=== PATIENT | female | born 1985 | race Caucasian/White ===

== ENCOUNTER → 2019-12-21 10:21 | Outpatient (BNVA) | payer MEDICAID, SELFPAY | PROVIDERS: Family Provider Family Medicine; PCP Family Medicine; Referring Provider Obstetrics & Gynecology; Visit Provider Obstetrics & Gynecology | DX: N93.9 Abnormal uterine and vaginal bleeding, unspecified (principal) | CPT/HCPCS: 76830; 83001; 84443; 84703; 85025 ==

== ENCOUNTER → 2019-12-23 11:13 | Outpatient (BNVA) | payer MEDICAID, SELFPAY | PROVIDERS: Family Provider Family Medicine; PCP Family Medicine; Visit Provider Nurse Practitioner Family | DX: J02.9 Acute pharyngitis, unspecified (principal) | CPT/HCPCS: 87081; 87880 ==

== ENCOUNTER 2019-12-28 08:30 | Emergency (ER) | payer MEDICAID, SELFPAY ==
[2019-12-28 08:33] VITALS: BP 118/85; PULSE 92; RESP 17; TEMP 36.9; O2SAT 97; BMI 37.4
--- NOTE | 2019-12-28 08:50 | ED_ITS ---
Entered by Kay Dimas, acting as scribe for Eric Shah DO Dec 28, 2019 08:30 HPI - Female Genitourinary General: Chief complaint: Urogenital-Female Stated complaint: blood in urine Time Seen by Provider: 12/28/19 08:45 History of Present Illness: HPI Narrative: 34-year-old female presents emergency room complaint of dysuria urgency or frequency along with some moderate hematuria. Patient denies flank pain. Denies vaginal discharge. Patient seen previously for the same problem started on antibiotics has not had any relief of symptoms since then. MD elicited complaint: UTI Onset (ago): day(s) Severity: moderate Female Urogenital Radiation: Non-Radiating and Suprapubic Quality of pain: cramping Consistency: intermittent Vaginal discharge: none Vaginal bleeding: none Urinary symptoms: Difficulty Urinating, Dysuria and Hematuria Exacerbating factors: none Relieving factors: none Associated symptoms: Reports no associated symptoms; Deny abdominal pain, nausea or vaginal discharge Treatment prior to arrival: other (Patient was seen previously and started on antibiotics is currently taking.) Review of Systems Const: Denies: fever, chills, body aches, change in appetite, fatigue or malaise ENMT: Denies: throat pain, ear pain, nasal discharge or nasal congestion Card: Denies: chest pain, edema, shortness of breath on exertion or shortness of breath when lying down Resp: Denies: shortness of breath, productive cough or non-productive cough GI: Denies: abdominal pain, nausea, vomiting, vomiting blood, coffee grounds in vomit, diarrhea, constipation, bloating, blood in stool or black tarry stool : Reports: urinary urgency and blood in urine; Denies: flank pain, difficulty urinating, painful urination, urinary frequency or vaginal discharge Skin/Breast: Denies: rash or itching PFSH ED PFSH: Medical History Dyspareunia, female Surgical History History of endometrial ablation (~09/2015) 09/2015 Thermal endometrial ablation performed by . Hx of tubal ligation (~2010) Essure procedure performed by Dr. Francis. Family History Father Diabetes Grandmother Hypertension PATERNAL Heart disease PATERNAL Grandfather Hypertension PATERNAL Family/Other Breast cancer MATERNAL AUNT Social History Smoking and tobacco status: current some day smoker cigarettes Years cigarettes smoked: 16 [ Other cigarette details: smokes lesss than 1 ppd ] Alcohol intake: current Alcohol intake frequency: holidays/special occasions only Alcohol type: beer Physical Exam Const: COMMON NORMALS: no apparent distress GENERAL APPEARANCE: cooperative and comfortable ORIENTATION/CONSCIOUSNESS: Yes awake, Yes oriented to person, Yes oriented to place and Yes oriented to time HENMT: COMMON NORMALS: normocephalic, head/scalp atraumatic, hearing grossly normal bilaterally, external ears normal, EAC's normal, TM's normal bilaterally, nasal mucous membranes and turbinates normal, moist oral mucous membranes and oropharynx normal HEAD & SCALP: normocephalic and atraumatic NOSE: nasal mucous membranes and turbinates normal EXTERNAL EAR: Yes external ears normal EXTERNAL AUDITORY CANAL: EAC's normal TYMPANIC MEMBRANE: TM's normal bilaterally Eye: COMMON NORMALS: PERRL, EOMs intact bilaterally, conjunctivae normal and no scleral icterus CONJUNCTIVA: Yes conjunctivae normal PUPIL: Yes PERRL Neck/C-Spine: COMMON NORMALS: full ROM, no lymphadenopathy, supple and no JVD Lymph: LYMPHATIC: no lymphadenopathy noted and no lymphedema noted Resp: COMMON NORMALS: normal respiratory effort, no retractions, no use of accessory muscles and clear to auscultation bilaterally AUSCULTATION: clear to auscultation bilaterally Cardio: COMMON NORMALS: no JVD, regular rate, regular rhythm and no murmurs RATE: regular rate RHYTHM: regular rhythm GI: COMMON NORMALS: soft to palpation and no hepatosplenomegaly AUSCULTATION: Yes normoactive bowel sounds PALPATION: Yes soft, No tender, No guarding and Yes no hepatosplenomegaly Extremity: COMMON NORMALS: normal to inspection, normal capillary refill, no clubbing, cyanosis or edema, no calf tenderness and no pedal edema Neuro: SENSORIUM/ORIENTATION: Yes oriented to person, Yes oriented to place and Yes oriented to time Skin: COMMON NORMALS: no rashes or lesions noted GENERAL SKIN EXAM: no rashes or lesions noted Course ED course: Will change to Cipro however stop the amoxicillin she was started on previously Cipro for 5 days follow-up with primary care doctor if not improving if worsens return to the emergency room Vital Signs: Vital signs: Vital Signs Temperature 98.4 F 12/28/19 08:33 Pulse Rate 92 12/28/19 08:33 Respiratory Rate 17 12/28/19 08:33 Blood Pressure 118/85 12/28/19 08:33 Pulse Oximetry 97 12/28/19 08:33 MDM - Female Lab Data: Labs: Lab Results 12/28/19 Range/Units 08:45 Urine Color Yellow (Yellow) Urine Appearance Cloudy (CLEAR) Urine pH 5 (5-7) Ur Specific Gravit y 1.015 (1.005-1.030) Urine Protein 1+ H (Negative) Urine Glucose (UA) Norm (Normal) Urine Ketones Negative (Negative) Urine Blood 3+ H (Negative) Urine Nitrate Negative (Negative) Urine Bilirubin Neg (NEGATIVE) Urine Urobilinogen Norm (Negative) mg/dL Ur Leukocyte Sharron ase 2+ H (Negative) Urine RBC Too numerous to c nt H (0-2) /hpf Urine WBC Too numerous to c nt H (0-5) /hpf Ur Squamous Epith Cells 0-4 H (0-5) Ur Transition Epit h Cell 0-4 /hpf Urine Bacteria 1+ H (NONE) Urine Mucus Trace Discharge Plan Discharge Patient Disposition: Home, Self-Care Clinical Impression: Urinary tract infection Condition: Stable Prescriptions: New ciprofloxacin HCl 500 mg tablet 500 mg PO BID 5 Days Qty: 10 RF: 0 No Action amoxicillin 875 mg tablet 875 mg PO BID 10 Days Qty: 20 RF: 0 sumatriptan succinate 50 mg tablet 100 mg PO PRN PRN (Reason: Migraine Headache) RF: 0 Linzess 290 mcg capsule 290 mcg PO QAM PRN (Reason: unknown) RF: 0 EC-Naprosyn 500 mg tablet,delayed release (DR/EC) 500 mg PO BID PRN (Reason: pain) Qty: 20 RF: 0 Discharge Orders: Discharge Order (Routine); Ordered 12/28/19 Ordered By: Eric Shah Referrals: Jim Matthews MD [Primary Care Provider] - Discharge Diet: Usual diet Discharge Activity: Resume usual activity Activity Restrictions/Additional Instructions: Return if you have further problems or develop fever. 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
[2019-12-28 09:25] LABS: Add Urine Microscopic? YES; Bilirubin Urine Neg (NEGATIVE); Blood Urine 3+ (Negative); Glucose Urine UA Norm (Normal); Ketones Urine Negative (Negative); Leukocyte Esterase Urine 2+ (Negative); Nitrate Urine Negative (Negative); Protein Urine 1+ (Negative); Specific Gravity, Urine 1.015 (1.005-1.030); Urine Appearance Cloudy (CLEAR); Urine Color Yellow (Yellow); Urobilinogen Urine Norm (Negative); pH Urine 5 (5-7)
[2019-12-28 09:27] LABS: Bacteria Urine 1+; RBC Urine TOO NUMEROUS TO CNT /hpf (0-2); Squamous Epithelial Cell Urine 0-4 (0-5); Transitional Epi Cells Urine 0-4 /hpf; WBC Urine TOO NUMEROUS TO CNT /hpf (0-5)
[2019-12-28 09:29] LABS: Add Urine Culture? Yes; Mucus Urine TRACE
== END 2019-12-28 09:56 | disposition home or self-care (01) ==
PROVIDERS: Emergency Provider Family Medicine; Family Provider Family Medicine; PCP Family Medicine
DX: N39.0 Urinary tract infection, site not specified (principal); F17.210 Nicotine dependence, cigarettes, uncomplicated
CPT/HCPCS: 81001; 87086; 99282

== ENCOUNTER 2019-12-31 15:35 | Emergency (ER) | payer MEDICAID, SELFPAY ==
[2019-12-31 16:14] VITALS: BP 114/77; PULSE 106; RESP 16; TEMP 37.5; O2SAT 97; BMI 37.4
[2019-12-31 17:01] LABS: Influenza A by IFA Negative (Negative); Influenza B by IFA Negative (Negative)
--- NOTE | 2019-12-31 21:04 | ED_ITS ---
Entered by Patricia Jack, acting as scribe for Lauren Tenorio MD Dec 31, 2019 15:35 HPI - General Adult General: Chief complaint: General Medical Stated complaint: COUGH/LOWER BACK PAIN Time Seen by Provider: 12/31/19 20:57 Source: patient Mode of arrival: ambulatory History of Present Illness: HPI narrative: 34 y/o female presents to the ED with complaint of sciatic pain. Pt states she was seen here a week ago for UTI and placed on abx. Since then she has continued to not feel well. She states she developed a cough and intermittent dizziness last night. Her daughter was recently dx with with flu AoJe WALKER complaint: Cough, dizzy Onset (ago): day(s) Severity: mild Quality: aching Associated symptoms: Reports cough; Deny chest pain, dyspnea or rash Review of Systems Const: Denies: fever, chills, body aches or change in appetite Eyes: Denies: blurry vision or eye discomfort ENMT: Denies: throat pain or dental pain Card: Denies: chest pain Resp: Reports: non-productive cough; Denies: shortness of breath GI: Denies: abdominal pain or diarrhea : Denies: painful urination Musc: Reports: back pain and extremity pain; Denies: neck pain Skin/Breast: Denies: rash Neuro: Reports: dizziness Psych: Denies: depression Ortiz/Lymph: Denies: easy bruising All/Imm: Denies: hives PFSH ED PFSH: Social History (Updated 12/28/19 @ 11:07 by Patricia Wasserman RN) Smoking and tobacco status: current some day smoker cigarettes Years cigarettes smoked: 16 [ Other cigarette details: smokes lesss than 1 ppd ] Alcohol intake: current Alcohol intake frequency: holidays/special occasions only Alcohol type: beer Physical Exam Const: COMMON NORMALS: no apparent distress, oriented x3 and healthy appearing HENMT: COMMON NORMALS: normocephalic and head/scalp atraumatic HEAD & SCALP: normocephalic and atraumatic Eye: COMMON NORMALS: PERRL and EOMs intact bilaterally PUPIL: Yes PERRL Neck/C-Spine: COMMON NORMALS: full ROM and supple Chest: COMMONS NORMALS: inspection of chest normal and palpation of chest normal Resp: COMMON NORMALS: normal respiratory effort, no retractions, no use of accessory muscles and clear to auscultation bilaterally AUSCULTATION: clear to auscultation bilaterally Cardio: COMMON NORMALS: regular rate, regular rhythm and no murmurs RATE: regular rate RHYTHM: regular rhythm GI: COMMON NORMALS: normal to inspection, nondistended, normoactive bowel sounds, soft to palpation, non-tender and no masses PALPATION: Yes soft Extremity: COMMON NORMALS: normal to inspection and full ROM Neuro: COMMON NORMALS: oriented x3, moves all extremities and no focal motor deficits Psych: COMMON NORMALS: mental status grossly normal, thought process normal and cooperative THOUGHT PROCESS: normal thought process Skin: COMMON NORMALS: no rashes or lesions noted and no wounds GENERAL SKIN EXAM: no rashes or lesions noted Course Vital Signs: Vital signs: Vital Signs Temperature 99.5 F 12/31/19 16:14 Pulse Rate 106 H 12/31/19 16:14 Respiratory Rate 16 12/31/19 16:14 Blood Pressure 114/77 12/31/19 16:14 Pulse Oximetry 97 12/31/19 16:14 MDM - General Adult MDM Narrative: Medical decision making narrative: Patient presents here with upper respiratory infection. Influenza is negative. Patient has low back pain as well with no signs of kidney stone or urinary tract infection. Abdominal exam is benign. Patient is stable for discharge and is to return if worsening. Lab Data: Labs: Lab Results 12/31/19 12/31/19 12/31/19 Range/Units 16:19 21:40 21:45 HCG, Qual Negative (Negative) Urine Color Yellow (Yellow) Urine Appearance Sl hazy (CLEAR) Urine pH 5 (5-7) Ur Specific Gravit y 1.020 (1.005-1.030) Urine Protein Neg (Negative) Urine Glucose (UA) Norm (Normal) Urine Ketones Negative (Negative) Urine Blood Neg (Negative) Urine Nitrate Negative (Negative) Urine Bilirubin Neg (NEGATIVE) Urine Urobilinogen Norm (Negative) mg/dL Ur Leukocyte Sharron ase Negative (Negative) Urine RBC None (0-2) /hpf Urine WBC 5-10 H (0-5) /hpf Ur Squamous Epith Cells 0-4 H (0-5) Urine Bacteria Trace (NONE) Urine Mucus 1+ Influenza Type A A g Negative (Negative) POC Influenza B Ag Negative (Negative) Imaging Data^: CXR: Radiologist's impression: Ordering Provider/Ordering MD: Mayank Hickey MD Date of Service: 12/31/19 Procedure(s): XR chest 1V portable [id number] Accession Number(s): [id number] Report Number: [id number] WS: [id number] Portable AP upright chest, 12/31/2019 Clinical Data: Sent for change in mental status Comparison: Portable chest, 04/02/2017. Findings: No nodules, masses or effusions are seen. The heart is normal. The pulmonary vascularity is not increased. No pneumonia or pneumothorax is seen. The aortic arch and descending aorta show mild tortuosity. The diaphragms are flattened. XR/XR chest 1V portable [id number] Impression: Atherosclerosis and hyperinflation. Discharge Plan Discharge Patient Disposition: Home, Self-Care Clinical Impression: Acute upper respiratory infection, Low back pain Condition: Stable Prescriptions: New EC-Naprosyn 500 mg tablet,delayed release (DR/EC) 500 mg PO BID PRN (Reason: pain) Qty: 20 RF: 0 No Action amoxicillin 875 mg tablet 875 mg PO BID 10 Days Qty: 20 RF: 0 sumatriptan succinate 50 mg tablet 100 mg PO PRN PRN (Reason: Migraine Headache) RF: 0 Linzess 290 mcg capsule 290 mcg PO QAM PRN (Reason: unknown) RF: 0 ciprofloxacin HCl 500 mg tablet 500 mg PO BID 5 Days Qty: 10 RF: 0 Discharge Orders: Discharge Order (Routine); Ordered 12/31/19 Ordered By: Lauren Tenorio Referrals: Jim Matthews MD [Primary Care Provider] - 4-7 days Discharge Diet: Advance as tolerated Discharge Activity: Resume usual activity Patient Instructions: Upper Respiratory Infection (ED) Discharge Date/Time: 12/31/19 22:59 Coding Level of Care Code ED Retail Warehouse Supervisor for Chg Fwd Exam Comprehensive The documentation recorded by the Guero iniguez Ashley, accurately reflects the service I personally performed and the decisions made by Coby bean Korby, MD Dec 31, 2019 15:35
--- NOTE | 2019-12-31 21:05 | XR_ITS ---
WS: [id number] XR chest 2V* [id number] REASON FOR EXAM: cough FINDINGS: Comparisons were made to July 09, 2019. The heart and mediastinal interfaces normal. The lung george are well aerated. No pneumonia, pleural effusion, pulmonary edema, or mass effect. The hilum and apices normal. No osseous abnormalities. XR/XR chest 2V* [id number] IMPRESSION: Negative chest for active pathology.
[2019-12-31 21:50] LABS: HCG Qualitative Urine. Negative (Negative)
[2019-12-31 22:10] LABS: Urine Appearance SL Hazy (CLEAR); Urine Color Yellow (Yellow); pH Urine 5 (5-7)
[2019-12-31 22:11] LABS: Add Urine Culture? No; Bacteria Urine TRACE; Bilirubin Urine Neg (NEGATIVE); Blood Urine Neg (Negative); Glucose Urine UA Norm (Normal); Ketones Urine Negative (Negative); Leukocyte Esterase Urine Negative (Negative); Mucus Urine 1+; Nitrate Urine Negative (Negative); Protein Urine Neg (Negative); Squamous Epithelial Cell Urine 0-4 (0-5); Urobilinogen Urine Norm (Negative)
== END 2019-12-31 22:59 | disposition home or self-care (01) ==
PROVIDERS: Family Medicine; Emergency Provider Emergency Medicine; Family Provider Family Medicine; PCP Family Medicine
DX: J06.9 Acute upper respiratory infection, unspecified (principal); M54.5 Low back pain; F17.210 Nicotine dependence, cigarettes, uncomplicated
CPT/HCPCS: 71046; 81001; 81025; 87804; 99281; 99283

== ENCOUNTER 2020-01-04 07:51 | Emergency (ER) | payer MEDICAID, SELFPAY ==
[2020-01-04 07:56] VITALS: BP 117/67; PULSE 87; RESP 16; TEMP 36.2; O2SAT 98; BMI 36.6
--- NOTE | 2020-01-04 08:00 | ED_ITS ---
HPI - General Adult General: Chief complaint: General Medical Stated complaint: COUGHING, CONGESTION Time Seen by Provider: 01/04/20 07:55 Source: patient Mode of arrival: ambulatory History of Present Illness: HPI narrative: Coughing and congestion; headache and states lungs and throat feel like they are burning. Sensitivity to light. Associated symptoms: Reports headache(s) Review of Systems General: Reports: 10 or more systems reviewed and unremarkable except in HPI and below Eyes: Reports: photophobia ENMT: Reports: throat pain Resp: Reports: non-productive cough Neuro: Reports: headache PFSH ED PFSH: Medical History Dyspareunia, female Surgical History History of endometrial ablation (~09/2015) 09/2015 Thermal endometrial ablation performed by . Hx of tubal ligation (~2010) Essure procedure performed by Dr. Francis. Family History Father Diabetes Grandmother Hypertension PATERNAL Heart disease PATERNAL Grandfather Hypertension PATERNAL Family/Other Breast cancer MATERNAL AUNT Social History Smoking and tobacco status: current some day smoker cigarettes Years cigarettes smoked: 16 [ Other cigarette details: smokes lesss than 1 ppd ] Alcohol intake: current Alcohol intake frequency: holidays/special occasions only Alcohol type: beer Physical Exam Const: COMMON NORMALS: no apparent distress, oriented x3, no limitations and alert GENERAL APPEARANCE: cooperative and comfortable ORIENTATION/CONSCIOUSNESS: Yes awake, Yes oriented to person, Yes oriented to place and Yes oriented to time HENMT: COMMON NORMALS: normocephalic, head/scalp atraumatic, external ears normal, EAC's normal, TM's normal bilaterally and external nose normal HEAD & SCALP: normal to inspection, normocephalic and atraumatic FACE & SINUS: normal facial exam, sinuses nontender and face symmetric NOSE: external nose normal, nares normal and no nasal discharge EXTERNAL EAR: Yes external ears normal EXTERNAL AUDITORY CANAL: EAC's normal TYMPANIC MEMBRANE: TM's normal bilaterally MOUTH: oral and palatal mucosa normal, lip normal and tongue normal THROAT: posterior oropharynx normal, tonsils normal and uvula midline Eye: COMMON NORMALS: PERRL, EOMs intact bilaterally and conjunctivae normal GENERAL EYE: normal appearance of both eyes and normal light reflex EYELID: eyelids normal CONJUNCTIVA: Yes conjunctivae normal PUPIL: Yes PERRL EOM: Yes EOM abnormal DIRECT OPHTHALMOSCOPY: Yes normal light reflex Neck/C-Spine: COMMON NORMALS: full ROM, no lymphadenopathy, supple, no meningeal signs, no JVD and thyroid normal GENERAL: Yes normal visual inspection THYROID: thyroid normal CERVICAL SPINE: Yes cervical ROM normal and Yes normal cervical lordosis Lymph: LYMPHATIC: no lymphadenopathy noted Chest: COMMONS NORMALS: inspection of chest normal and palpation of chest normal Resp: COMMON NORMALS: normal respiratory effort and no retractions AUSCULTATION: wheezes lower bilaterally and diminished lung sounds Cardio: COMMON NORMALS: no JVD, regular rate, regular rhythm, S1 normal heart sound, S2 normal heart sound, no gallops, no clicks, no murmurs, no rub and peripheral pulses 2+ throughout RATE: regular rate RHYTHM: regular rhythm HEART SOUNDS: S1 normal and S2 normal PERIPHERAL PULSES: pulses 2+ throughout GI: COMMON NORMALS: normal to inspection, nondistended, normoactive bowel sounds, soft to palpation, non-tender and no masses PALPATION: Yes soft : COMMON NORMALS: Yes no CVA tenderness and Yes external appearance normal BLADDER/KIDNEY EXAM: Yes no CVA tenderness Back/Pelvis: COMMON NORMALS: no CVA tenderness, thoracic and lumbar spine normal to inspection, no thoracic nor lumbar tenderness and thoraco-lumbar ROM normal Extremity: COMMON NORMALS: normal to inspection, full ROM, normal capillary refill, no joint enlargement, no clubbing, cyanosis or edema, no calf tenderness and no pedal edema GENERAL: Yes normal exam except as noted Neuro: COMMON NORMALS: oriented x3, moves all extremities, no focal motor deficits, no sensory deficits noted and gait normal SENSORIUM/ORIENTATION: Yes alert, Yes oriented to person, Yes oriented to place and Yes oriented to time MENINGEAL SIGNS: Yes no meningeal signs Psych: COMMON NORMALS: mental status grossly normal, thought process normal, cooperative, affect normal, speech normal and activity/motor behavior normal SPEECH: Yes normal speech THOUGHT PROCESS: normal thought process Skin: COMMON NORMALS: no rashes or lesions noted, no wounds and skin turgor normal GENERAL SKIN EXAM: no rashes or lesions noted and turgor normal Course ED course: Pt symptomatic upon examination of nonproductive cough and photophobia. Lung sounds were diminished in lower lobes with mild wheezing. Pt smokes occasionally. Recent exposure to Flu A. No flu shot. Will treat with oral antibiotics of bacterial bronchitis. Vital Signs: Vital signs: Vital Signs Temperature 97.1 F L 01/04/20 07:56 Pulse Rate 87 01/04/20 07:56 Respiratory Rate 16 01/04/20 07:56 Blood Pressure 117/67 01/04/20 07:56 Pulse Oximetry 98 01/04/20 07:56 Discharge Plan Discharge Patient Disposition: Home, Self-Care Clinical Impression: Bronchitis Condition: Stable Prescriptions: New albuterol sulfate 90 mcg/actuation HFA aerosol inhaler 1 inh INHALATION Q6H PRN (Reason: shortness of breath or wheezing) Qty: 6.7 RF: 0 Zithromax Z-Ari 250 mg tablet See Rx Instructions .ROUTE .COMPLEX Qty: 6 RF: 0 No Action sumatriptan succinate 50 mg tablet 100 mg PO PRN PRN (Reason: Migraine Headache) RF: 0 Linzess 290 mcg capsule 290 mcg PO QAM PRN (Reason: unknown) RF: 0 EC-Naprosyn 500 mg tablet,delayed release (DR/EC) 500 mg PO BID PRN (Reason: pain) Qty: 20 RF: 0 Referrals: Jim Matthews MD [Primary Care Provider] - Discharge Diet: Usual diet Discharge Activity: Increase activity as tolerated Activity Restrictions/Additional Instructions: Stop smoking. Follow up with PCP as needed if not improving within 48 hours or if worsening in symptoms. Coding Level of Care Code ED Automatic Lathe Operator for Chg Fwd Exam Comprehensive
== END 2020-01-04 08:35 | disposition home or self-care (01) ==
PROVIDERS: Emergency Provider Nurse Practitioner Family; Family Provider Family Medicine; PCP Family Medicine
DX: J40 Bronchitis, not specified as acute or chronic (principal); F17.210 Nicotine dependence, cigarettes, uncomplicated
CPT/HCPCS: 12345; 99281

== ENCOUNTER → 2020-02-20 08:04 | Outpatient (BNVA) | payer MEDICAID, SELFPAY | PROVIDERS: Family Provider Family Medicine; PCP Family Medicine; Visit Provider Counselor Mental Health | DX: F33.1 Major depressive disorder, recurrent, moderate (principal) | CPT/HCPCS: 90834 ==

== ENCOUNTER → 2020-02-25 08:03 | Outpatient (BNVA) | payer MEDICAID, SELFPAY | PROVIDERS: Family Provider Family Medicine; PCP Family Medicine; Visit Provider Counselor Mental Health | DX: F33.1 Major depressive disorder, recurrent, moderate (principal) | CPT/HCPCS: 90832 ==

== ENCOUNTER → 2020-03-04 08:34 | Outpatient (BNVA) | payer MEDICAID, SELFPAY | PROVIDERS: Family Provider Family Medicine; PCP Family Medicine; Visit Provider Counselor Mental Health | DX: F33.1 Major depressive disorder, recurrent, moderate (principal) | CPT/HCPCS: 90832 ==

== ENCOUNTER → 2020-03-10 08:05 | Outpatient (BNVA) | payer MEDICAID, SELFPAY | PROVIDERS: Family Provider Family Medicine; PCP Family Medicine; Visit Provider Counselor Mental Health | DX: F33.1 Major depressive disorder, recurrent, moderate (principal) | CPT/HCPCS: 90832 ==

== ENCOUNTER → 2020-03-17 08:04 | Outpatient (BNVA) | payer MEDICAID, SELFPAY | PROVIDERS: Family Provider Family Medicine; PCP Family Medicine; Visit Provider Counselor Mental Health | DX: F33.1 Major depressive disorder, recurrent, moderate (principal) | CPT/HCPCS: 90834 ==

== ENCOUNTER → 2020-03-25 08:30 | Outpatient (BNVA) | payer MEDICAID, SELFPAY | PROVIDERS: Family Provider Family Medicine; PCP Family Medicine; Visit Provider Counselor Mental Health | DX: F33.1 Major depressive disorder, recurrent, moderate (principal) | CPT/HCPCS: 90834 ==

== ENCOUNTER → 2020-04-01 08:05 | Outpatient (BNVA) | payer MEDICAID, SELFPAY | PROVIDERS: Family Provider Family Medicine; PCP Family Medicine; Visit Provider Counselor Mental Health | DX: F33.1 Major depressive disorder, recurrent, moderate (principal) | CPT/HCPCS: 90834 ==

== ENCOUNTER → 2020-04-08 08:17 | Outpatient (BNVA) | payer MEDICAID, SELFPAY | PROVIDERS: Family Provider Family Medicine; PCP Family Medicine; Visit Provider Counselor Mental Health | DX: F33.1 Major depressive disorder, recurrent, moderate (principal) | CPT/HCPCS: 90834 ==

== ENCOUNTER → 2020-04-15 07:58 | Outpatient (BNVA) | payer MEDICAID, SELFPAY | PROVIDERS: Family Provider Family Medicine; PCP Family Medicine; Visit Provider Counselor Mental Health | DX: F33.1 Major depressive disorder, recurrent, moderate (principal) | CPT/HCPCS: 90834 ==

== ENCOUNTER → 2020-04-22 08:04 | Outpatient (BNVA) | payer MEDICAID, SELFPAY | PROVIDERS: Family Provider Family Medicine; PCP Family Medicine; Visit Provider Counselor Mental Health | DX: F33.1 Major depressive disorder, recurrent, moderate (principal) | CPT/HCPCS: 90834 ==

== ENCOUNTER → 2020-04-29 08:24 | Outpatient (BNVA) | payer MEDICAID, SELFPAY | PROVIDERS: Family Provider Family Medicine; PCP Family Medicine; Visit Provider Counselor Mental Health | DX: F33.1 Major depressive disorder, recurrent, moderate (principal) | CPT/HCPCS: 90834 ==

== ENCOUNTER → 2020-05-16 08:26 | Outpatient (BNVA) | payer MEDICAID, SELFPAY | PROVIDERS: Family Provider Family Medicine; PCP Family Medicine; Visit Provider Counselor Mental Health | DX: F33.1 Major depressive disorder, recurrent, moderate (principal); F43.11 Post-traumatic stress disorder, acute | CPT/HCPCS: 90834 ==

== ENCOUNTER → 2020-05-21 08:00 | Outpatient (BNVA) | payer MEDICAID, SELFPAY | PROVIDERS: Family Provider Family Medicine; PCP Family Medicine; Visit Provider Counselor Mental Health | DX: F43.11 Post-traumatic stress disorder, acute (principal); F33.1 Major depressive disorder, recurrent, moderate | CPT/HCPCS: 90834 ==

== ENCOUNTER → 2020-05-27 08:05 | Outpatient (BNVA) | payer MEDICAID, SELFPAY | PROVIDERS: Family Provider Family Medicine; PCP Family Medicine; Visit Provider Counselor Mental Health | DX: F33.41 Major depressive disorder, recurrent, in partial remission (principal); F43.11 Post-traumatic stress disorder, acute | CPT/HCPCS: 90834 ==

== ENCOUNTER → 2020-06-03 08:41 | Outpatient (BNVA) | payer MEDICAID, SELFPAY | PROVIDERS: Family Provider Family Medicine; PCP Family Medicine; Visit Provider Counselor Mental Health | DX: F43.11 Post-traumatic stress disorder, acute (principal); F33.41 Major depressive disorder, recurrent, in partial remission | CPT/HCPCS: 90834 ==

== ENCOUNTER → 2020-06-18 14:26 | Outpatient (BNVA) | payer MEDICAID, SELFPAY | PROVIDERS: Family Provider Family Medicine; PCP Family Medicine; Visit Provider Psychiatry & Neurology Psychiatry | DX: F41.1 Generalized anxiety disorder (principal); Z63.9 Problem related to primary support group, unspecified; F81.9 Developmental disorder of scholastic skills, unspecified | CPT/HCPCS: 90792 ==

== ENCOUNTER → 2020-06-20 08:33 | Outpatient (BNVA) | payer MEDICAID, SELFPAY | PROVIDERS: Family Provider Family Medicine; PCP Family Medicine; Visit Provider Counselor Mental Health | DX: F41.1 Generalized anxiety disorder (principal); F33.42 Major depressive disorder, recurrent, in full remission; F43.11 Post-traumatic stress disorder, acute | CPT/HCPCS: 90834 ==

== ENCOUNTER → 2020-06-27 08:30 | Outpatient (BNVA) | payer MEDICAID, SELFPAY | PROVIDERS: Family Provider Family Medicine; PCP Family Medicine; Visit Provider Counselor Mental Health | DX: F41.1 Generalized anxiety disorder (principal) | CPT/HCPCS: 90834 ==

== ENCOUNTER → 2020-07-04 09:34 | Outpatient (BNVA) | payer MEDICAID, SELFPAY | PROVIDERS: Family Provider Family Medicine; PCP Family Medicine; Visit Provider Counselor Mental Health | DX: F41.1 Generalized anxiety disorder (principal) | CPT/HCPCS: 90834 ==

== ENCOUNTER → 2020-07-14 08:18 | Outpatient (BNVA) | payer MEDICAID, SELFPAY | PROVIDERS: Family Provider Family Medicine; PCP Family Medicine; Visit Provider Psychiatry & Neurology Psychiatry | DX: F41.1 Generalized anxiety disorder (principal); F81.9 Developmental disorder of scholastic skills, unspecified; Z63.9 Problem related to primary support group, unspecified | CPT/HCPCS: 99213 ==

== ENCOUNTER → 2020-07-15 10:42 | Outpatient (BNVA) | payer MEDICAID, SELFPAY | PROVIDERS: Family Provider Family Medicine; PCP Family Medicine; Visit Provider Obstetrics & Gynecology | DX: R31.9 Hematuria, unspecified (principal) | CPT/HCPCS: 81000 ==

== ENCOUNTER → 2020-07-18 07:53 | Outpatient (BNVA) | payer MEDICAID, SELFPAY | PROVIDERS: Family Provider Family Medicine; PCP Family Medicine; Visit Provider Counselor Mental Health | DX: F41.1 Generalized anxiety disorder (principal) | CPT/HCPCS: 90834 ==

== ENCOUNTER → 2020-07-25 08:38 | Outpatient (BNVA) | payer MEDICAID, SELFPAY | PROVIDERS: Family Provider Family Medicine; PCP Family Medicine; Visit Provider Counselor Mental Health | DX: F41.1 Generalized anxiety disorder (principal) | CPT/HCPCS: 90834 ==

== ENCOUNTER → 2020-08-12 15:45 | Outpatient (BNVA) | payer MEDICAID, SELFPAY | PROVIDERS: Family Provider Family Medicine; PCP Family Medicine; Visit Provider Obstetrics & Gynecology | DX: Z01.419 Encounter for gynecological examination (general) (routine) without abnormal findings (principal) | CPT/HCPCS: 88175 ==

== ENCOUNTER → 2020-08-14 08:08 | Outpatient (BNVA) | payer MEDICAID, SELFPAY | PROVIDERS: Family Provider Family Medicine; PCP Family Medicine; Visit Provider Counselor Mental Health | DX: F41.1 Generalized anxiety disorder (principal) | CPT/HCPCS: 90834 ==

== ENCOUNTER → 2020-08-25 08:10 | Outpatient (BNVA) | payer MEDICAID, SELFPAY | PROVIDERS: Family Provider Family Medicine; PCP Family Medicine; Visit Provider Counselor Mental Health | DX: F41.1 Generalized anxiety disorder (principal) | CPT/HCPCS: 90834 ==

== ENCOUNTER → 2020-09-08 08:20 | Outpatient (BNVA) | payer MEDICAID, SELFPAY | PROVIDERS: Family Provider Family Medicine; PCP Family Medicine; Visit Provider Counselor Mental Health | DX: F41.1 Generalized anxiety disorder (principal); Z63.9 Problem related to primary support group, unspecified | CPT/HCPCS: 90834 ==

== ENCOUNTER → 2020-09-15 10:00 | Outpatient (BNVA) | payer MEDICAID, SELFPAY | PROVIDERS: Family Provider Family Medicine; PCP Family Medicine; Referring Provider Obstetrics & Gynecology; Visit Provider Urology | DX: N30.21 Other chronic cystitis with hematuria | CPT/HCPCS: 81003 ==

== ENCOUNTER → 2020-09-16 08:38 | Outpatient (BNVA) | payer MEDICAID, SELFPAY | PROVIDERS: Family Provider Family Medicine; PCP Family Medicine; Visit Provider Counselor Mental Health | DX: F41.1 Generalized anxiety disorder (principal); Z63.9 Problem related to primary support group, unspecified | CPT/HCPCS: 90834 ==

== ENCOUNTER → 2020-09-30 08:11 | Outpatient (BNVA) | payer MEDICAID, SELFPAY | PROVIDERS: Family Provider Family Medicine; PCP Family Medicine; Visit Provider Counselor Mental Health | DX: F41.1 Generalized anxiety disorder (principal); Z63.9 Problem related to primary support group, unspecified | CPT/HCPCS: 90834 ==

== ENCOUNTER → 2020-10-07 08:12 | Outpatient (BNVA) | payer MEDICAID, SELFPAY | PROVIDERS: Family Provider Family Medicine; PCP Family Medicine; Visit Provider Counselor Mental Health | DX: F41.1 Generalized anxiety disorder (principal); Z63.9 Problem related to primary support group, unspecified | CPT/HCPCS: 90834 ==

== ENCOUNTER → 2020-10-14 07:53 | Outpatient (BNVA) | payer MEDICAID, SELFPAY | PROVIDERS: Family Provider Family Medicine; PCP Family Medicine; Visit Provider Counselor Mental Health | DX: F41.1 Generalized anxiety disorder (principal); Z63.9 Problem related to primary support group, unspecified | CPT/HCPCS: 90834 ==

== ENCOUNTER → 2020-10-15 07:43 | Outpatient (BNVA) | payer MEDICAID, SELFPAY | PROVIDERS: Family Provider Family Medicine; PCP Family Medicine; Visit Provider Nurse Practitioner | DX: F41.1 Generalized anxiety disorder (principal) | CPT/HCPCS: 99204 ==

== ENCOUNTER → 2020-11-12 09:25 | Outpatient (BNVA) | payer MEDICAID, SELFPAY | PROVIDERS: Family Provider Family Medicine; PCP Family Medicine; Visit Provider Counselor Mental Health | DX: F41.1 Generalized anxiety disorder (principal); Z63.9 Problem related to primary support group, unspecified | CPT/HCPCS: 90834 ==

== ENCOUNTER 2020-11-24 20:00 | Outpatient (CLI) | payer MEDICAID, SELFPAY | END 2020-11-24 20:01 | disposition home or self-care (01) | LOC: SLEEP 12-01 14:46 | PROVIDERS: Family Provider Family Medicine; PCP Family Medicine; Visit Provider Internal Medicine | DX: G47.30 Sleep apnea, unspecified (principal) | CPT/HCPCS: 95810 ==

== ENCOUNTER → 2021-01-09 09:56 | Outpatient (BNVA) | payer MEDICAID, SELFPAY | PROVIDERS: PCP Family Medicine; Visit Provider Obstetrics & Gynecology | DX: G89.29 Other chronic pain (principal); R10.2 Pelvic and perineal pain | CPT/HCPCS: 87635 ==

== ENCOUNTER → 2021-03-11 15:14 | Outpatient (BNVA) | payer MEDICAID, SELFPAY | PROVIDERS: PCP Family Medicine; Visit Provider Obstetrics & Gynecology | DX: Z32.01 Encounter for pregnancy test, result positive (principal) | CPT/HCPCS: 81025 ==

== ENCOUNTER → 2021-03-31 14:08 | Outpatient (BNVA) | payer MEDICAID, SELFPAY | PROVIDERS: PCP Family Medicine; Visit Provider Obstetrics & Gynecology | DX: N91.2 Amenorrhea, unspecified (principal) | CPT/HCPCS: 83001; 84146; 84443; 84702; 85025 ==

== ENCOUNTER → 2021-04-03 13:54 | Outpatient (BNVA) | payer MEDICAID, SELFPAY | PROVIDERS: PCP Family Medicine; Visit Provider Obstetrics & Gynecology | DX: N91.2 Amenorrhea, unspecified (principal); N83.202 Unspecified ovarian cyst, left side; N83.201 Unspecified ovarian cyst, right side | CPT/HCPCS: 76830 ==

== ENCOUNTER 2021-05-22 05:39 | Emergency (ER) | payer MEDICAID, SELFPAY ==
[2021-05-22 05:41] VITALS: BP 110/52; PULSE 86; RESP 18; TEMP 36.6; O2SAT 96; BMI 39.9
--- NOTE | 2021-05-22 06:13 | ED_ITS ---
HPI - Nausea/Vomiting/Diarrhea General: Chief complaint: Nausea/Vomiting/Diarrhea Stated complaint: janae torres Time Seen by Provider: 05/22/21 05:58 History of Present Illness: HPI Narrative: 35-year-old female presents to the emergency room with complaints of nausea. She relates that having taking some CBD Gummies last evening and this morning and the nausea began at 4 AM. Given for p.o. Zofran in route this morning. MD elicited complaint: nausea Onset (ago): hour(s) Description of vomiting: watery and bilious Associated nausea: Yes Associated abdominal pain: No Exacerbating factors: none Relieving factors: none Associated symtoms: Reports anorexia and nausea; Denies altered mental status, anxiety, bloating, change in vision, chest pain, cough, diaphoresis, decreased urine output, dizziness, dysuria, epistaxis, fatigue, fecal incontinence, fevers/chills, headache(s), malaise, myalgias, numbness, palpitations, rash, short of breath, syncope, tenesmus, tinnitus or we akness Review of Systems Const: Denies: fatigue, malaise or diaphoresis Eyes: Denies: change in vision ENMT: Denies: tinnitus or epistaxis Card: Denies: chest pain, palpitations or syncope Resp: Denies: dyspnea, productive cough or non-productive cough GI: Reports: nausea; Denies: vomiting, bloating or fecal incontinence : Denies: dysuria Skin/Breast: Denies: rash or pruritus Neuro: Denies: headache(s) or dizziness Psych: Denies: anxiety PFS ED PFSH: Medical History Chronic cystitis Dyspareunia, female Family problems WILBERT (generalized anxiety disorder) Intellectual delay Surgical History History of endometrial ablation (~09/2015) 09/2015 Thermal endometrial ablation performed by . Hx of tubal ligation (~2010) Essure procedure performed by Dr. Francis. Family History Father Diabetes Hyperlipidemia Grandmother Hypertension PATERNAL Heart disease PATERNAL Grandfather Hypertension PATERNAL Family/Other Breast cancer MATERNAL AUNT Denies family history of Colon cancer Ovarian cancer Clotting disorder Anesthesia complication Bleeding disorder Uterine cancer Thyroid condition Stroke Social History Smoking and tobacco status: current some day smoker cigarettes Years cigarettes smoked: 16 [ Other cigarette details: states she smokes only when she gets mad ] Alcohol intake: current Alcohol intake frequency: holidays/special occasions only Alcohol type: beer Female Reproductive History: Date of last menstrual period: 04/01/21 Para: 2 Spontaneous abortions: Yes Physical Exam Const: COMMON NORMALS: no acute distress EXAM LIMITATIONS: no altered mental status GENERAL APPEARANCE: cooperative and comfortable ORIENTATION/CONSCIOUSNESS: Yes awake, Yes oriented to person, Yes oriented to place and Yes oriented to time HENMT: COMMON NORMALS: normocephalic, atraumatic and hearing grossly normal bilaterally HEAD & SCALP: normocephalic and atraumatic Neck/C-Spine: COMMON NORMALS: no JVD Resp: COMMON NORMALS: normal respiratory effort, No retractions, No use of accessory muscles and clear to auscultation bilaterally AUSCULTATION: clear to auscultation bilaterally Cardio: COMMON NORMALS: no JVD, regular rate, regular rhythm and No murmurs present (Cardio) RATE: regular rate RHYTHM: regular rhythm GI: COMMON NORMALS: Soft to palpation and No hepatosplenomegaly present AUSCULTATION: Yes normoactive bowel sounds PALPATION: Yes Soft to palpation, No Tenderness to palpation present (GI), No Guarding due to palpation present (GI) and Yes No hepatosplenomegaly present Extremity: COMMON NORMALS: normal to inspection, capillary refill normal, no clubbing, cyanosis or edema, no calf tenderness and no pedal edema Neuro: SENSORIUM/ORIENTATION: Yes oriented to person, Yes oriented to place and Yes oriented to time Skin: COMMON NORMALS: no rashes or lesions noted GENERAL SKIN EXAM: no rashes or lesions noted Course Vital Signs: Vital signs: Vital Signs Temperature 97.8 F 05/22/21 05:41 Pulse Rate 86 05/22/21 05:41 Respiratory Rate 18 05/22/21 05:41 Blood Pressure 110/52 05/22/21 05:41 Pulse Oximetry 96 05/22/21 05:41 MDM - Nausea/Vomiting/Diarrhea MDM Narrative: Medical decision making narrative: Patient reports nausea but no actual vomiting. She refuses blood or IV draws she refuses to give a UA. Discussed with her that is really the only avenue we have to evaluate her further. She stated she wanted this washed out of her system . I am told her the only way we can attempt to do that would be with an IV. She has IV fluids and laboratory studies ordered she is refusing both and is wants to go home. We will discharge her home sent her home with some Zofran to use as needed her exam is completely normal she has any worsening symptoms she can return. Discharge Plan Discharge Patient Disposition: Home Clinical Impression: Nausea, WILBERT (generalized anxiety disorder) Condition: Stable Prescriptions: New Zofran 4 mg tablet 4 mg PO Q6H PRN (Reason: nausea and vomiting) Qty: 10 RF: 0 No Action fluticasone propionate [Flonase Allergy Relief] 50 mcg/actuation spray,suspension 2 spray INTRANASAL DAILY PRNRF: 0 sumatriptan succinate 50 mg tablet 100 mg PO PRN PRN (Reason: Migraine Headache) RF: 0 norgestimate-ethinyl estradiol [Sprintec (28)] 0.25-35 mg-mcg tablet 1 tab PO DAILY Qty: 84 RF: 0 albuterol sulfate 90 mcg/actuation HFA aerosol inhaler 1 inh INHALATION Q6H PRN (Reason: shortness of breath or wheezing) Qty: 6.7 RF: 0 Discharge Orders: Discharge ED (Routine); Ordered 05/22/21 Ordered By: Eric Shah Referrals: Jim Matthews MD [Primary Care Provider] - Discharge Diet: Clear Liquid Discharge Activity: Increase activity as tolerated Patient Instructions: Opioid Safety Activity Restrictions/Additional Instructions: Liquid diet for 24 to 48 hours and advance as tolerated. If any worsening symptoms you are welcome to return. Coding Level of Care Code ED Acquisition Analyst for Moon Fwannette Exam Comprehensive
--- NOTE | 2021-05-22 06:21 | PC.NURSE ---
patient refused IV
--- NOTE | 2021-05-22 06:29 | PC.NURSE ---
patient refused blood draw and urinalysis
--- NOTE | 2021-05-22 06:46 | PC.NURSE ---
patient left without discharge paperwork
== END 2021-05-22 06:47 | disposition home or self-care (01) ==
PROVIDERS: Emergency Provider Family Medicine; PCP Family Medicine
DX: R11.0 Nausea (principal); F41.1 Generalized anxiety disorder; F17.210 Nicotine dependence, cigarettes, uncomplicated
CPT/HCPCS: 99282

== ENCOUNTER → 2021-07-08 16:13 | Outpatient (BNVA) | payer MEDICAID, SELFPAY | PROVIDERS: PCP Family Medicine; Visit Provider Nurse Practitioner Family | DX: Z20.822 Contact with and (suspected) exposure to COVID-19 (principal) | CPT/HCPCS: 87635 ==

== ENCOUNTER → 2023-07-19 11:22 | Outpatient (BNVA) | payer MEDICAID, SELFPAY | PROVIDERS: PCP Family Medicine; Visit Provider Podiatrist Foot & Ankle Surgery | DX: M21.621 Bunionette of right foot; M21.622 Bunionette of left foot; L84 Corns and callosities | CPT/HCPCS: 99203 ==

== ENCOUNTER 2023-09-16 13:31 | Outpatient (CLI) | payer MEDICAID, SELFPAY ==
--- NOTE | 2023-09-16 13:39 | XR_ITS ---
WS: [id number] Exam: XR wrist RT min 3V* [id number] Date/Time of Exam: 09/16/2023 1:41 PM Reason For Exam: PAIN IN R WRIST There are no fractures, soft tissue swelling, or unusual calcifications. The wrist shows normal bony alignment. There is no irregularity of the bony architecture. IMPRESSION: Negative RIGHT wrist.
== END 2023-09-16 13:32 | disposition home or self-care (01) ==
LOC: RAD 13:32
PROVIDERS: PCP Family Medicine; Visit Provider Family Medicine
DX: M25.531 Pain in right wrist (principal)
CPT/HCPCS: 73110

== ENCOUNTER 2024-10-30 14:05 | Emergency (ER) | payer MEDICAID, SELFPAY ==
[2024-10-30 14:09] VITALS: BP 115/79; PULSE 92; TEMP 36.7; O2SAT 97
--- NOTE | 2024-10-30 17:34 | USR_ITS ---
PROCEDURE INFORMATION: Exam: US Duplex Right Lower Extremity Veins, Limited Exam date and time: 10/30/2024 5:56 PM Age: 39 years old Clinical indication: Pain; Leg, lower; Right; Additional info: Posterior thigh/knee pain TECHNIQUE: Imaging protocol: Real-time duplex ultrasound of the right extremity with 2-D duong scale, color Doppler flow and spectral waveform analysis including responses to compression and other maneuvers (when performed) with image documentation. Limited exam was focused on the right lower extremity veins. COMPARISON: US transvaginal [id number] 04/03/2021 2:10 PM FINDINGS: Right deep veins: Unremarkable. The common femoral, femoral, proximal profunda femoral and popliteal veins are patent without thrombus. Normal Doppler waveforms. Normal compressibility and/or augmentation response. Superficial veins: Greater saphenous vein at the saphenofemoral junction is patent without thrombus. Soft tissues: Unremarkable. US/[place] [id number] IMPRESSION: No evidence of deep vein thrombosis.
--- NOTE | 2024-10-30 17:35 | W.ED.EXTPRO ---
HPI - Extremity Problem General: Chief complaint: Extremity Problem,Nontraumatic Stated complaint: R. leg pain Time Seen by Provider: 10/30/24 14:07 Source: patient Mode of arrival: ambulatory Limitations: no limitations History of Present Illness: Patient is a 39-year-old female presents to ED today with complaints of right leg pain that she began noticing yesterday. Patient states when she walks she has pain to her right posterior thigh and back behind her knee. She feels like the muscles are squeezing or cramping. She has no muscle cramps elsewhere. She states her significant other told her he thinks the leg might be swollen. She has not noticed any redness or warmth to the extremity. She is not having any calf pain. She is ambulatory here without difficulty or assistance. No known recent injury or trauma. She is not having any chest pain, shortness of breath, difficulty breathing. MD Complaint: extremity pain Onset (ago): day(s) Pain Consistency: constant Location: right and lower extremity Quality: burning Radiation: none Relieving factors: immobilization Exacerbating factors: walking Associated symptoms: Reports no associated symptoms; Deny chest pain, fever(s) or rash Related Data Home Medications Medication Instructions Recorded Confirmed sumatriptan succinate 50 mg tablet 100 mg PO PRN PRN Migraine Headache 11/29/19 07/19/23 fluticasone propionate 50 2 spray intranasal DAILY PRN 04/17/21 07/19/23 mcg/actuation nasal spray,suspension (Flonase Allergy Relief) Previous Rx's Medication Instructions Recorded ondansetron HCl 4 mg tablet 4 mg PO Q6H PRN nausea and 05/22/21 (Zofran) vomiting #10 tabs norgestimate 0.25 mg-ethinyl 1 tab PO DAILY #84 tabs 06/15/21 estradiol 35 mcg tablet (Sprintec (28)) albuterol sulfate 90 mcg/actuation 1 inh inhalation Q6H PRN shortness 07/14/21 aerosol inhaler of breath or wheezing #6.7 grams fluconazole 150 mg tablet 150 mg PO Q3D 2 doses #2 tabs 07/28/22 (Diflucan) levofloxacin 750 mg tablet 750 mg PO DAILY 7 days #7 tabs 07/28/22 Allergies Allergy/AdvReac Type Severity Reaction Status Date / Time aspirin Allergy Severe nosebleed Verified 10/30/24 14:15 Review of Systems Const: Denies: fever(s) Card: Denies: chest pain Resp: Denies: dyspnea Musc: Reports: extremity pain; Denies: neck pain, back pain, extremity swelling, joint pain, joint swelling, joint redness, joint warmth, joint stiffness, limited range of motion or muscle weakness Skin/Breast: Denies: rash Neuro: Denies: headache(s), numbness in extremities, weakness in extremities, sensory changes, difficulty walking or dizziness PFSH ED PFSH: Medical History Chronic cystitis Intellectual delay Family problems WILBERT (generalized anxiety disorder) Dyspareunia, female Surgical History Hx of tubal ligation (~2010) Essure procedure performed by Dr. Francis. History of endometrial ablation (~09/2015) 09/2015 Thermal endometrial ablation performed by . Family History Father Diabetes Hyperlipidemia Grandmother Hypertension PATERNAL Heart disease PATERNAL Grandfather Hypertension PATERNAL Family/Other Breast cancer MATERNAL AUNT Denies family history of Colon cancer Ovarian cancer Clotting disorder Anesthesia complication Bleeding disorder Uterine cancer Thyroid disease Stroke Social History Smoking and tobacco/nicotine status: current some day tobacco/nicotine user cigarettes Years cigarettes smoked: 16 [ Other cigarette details: states she smokes only when she gets mad ] Alcohol intake: current Alcohol intake frequency: holidays/special occasions only Alcohol type: beer Substance/Drug Use: never Do you think of yourself as: Straight/Heterosexual Female Reproductive History: Para: 2 Spontaneous abortions: Yes Physical Exam Const: COMMON NORMALS: no acute distress, patient oriented x3, no limitations, alert and well nourished GENERAL APPEARANCE: cooperative NUTRITIONAL APPEARANCE: obese (BMI 38.3) Resp: COMMON NORMALS: normal respiratory effort and clear to auscultation bilaterally AUSCULTATION: clear to auscultation bilaterally Cardio: COMMON NORMALS: regular rate and regular rhythm RATE: regular rate RHYTHM: regular rhythm Extremity: COMMON NORMALS: normal to inspection, full ROM, capillary refill normal, no joint enlargement, no clubbing, cyanosis or edema, no calf tenderness and no pedal edema GENERAL: Yes normal exam except as noted OTHER: reports tenderness to R posterior thigh and popliteal space; no erythema/cords or edema noted; no obvious Quinones's; distal DP/PT pulses are easily felt; feet are warm to the touch with brisk cap refill and normal sensation Neuro: COMMON NORMALS: patient oriented x3, moves all extremities, no focal motor deficits, no sensory deficits noted and gait normal SENSORIUM/ORIENTATION: Yes alert Skin: COMMON NORMALS: no rashes or lesions noted GENERAL SKIN EXAM: no rashes or lesions noted TRAUMA: no lacerations or abrasions Course Vital Signs: Vital signs: Vital Signs Temperature 98.1 F 10/30/24 14:09 Pulse Rate 90 10/30/24 17:42 Blood Pressure 119/79 10/30/24 17:42 Pulse Oximetry 98 10/30/24 17:42 Oxygen Delivery Me thod Room Air 10/30/24 17:42 MDM - Extremity (Nontraumatic) Medical Decision Making Patient is a 39-year-old female here for pain to her right posterior thigh and knee. She has no acute neurologic or arterial compromise. She has no back pain. Ultrasound is negative for DVT. At this time recommend conservative therapies at home when she can follow-up with primary care for worsening or not improving symptoms. Return to ED precautions given. Medical Records I reviewed the patient's medical records. XR interpretation done by ED provider, pending radiology final review (per US tech-negative for DVT) Discharge Plan Discharge Patient Disposition: Home Clinical Impression: Acute pain of right lower extremity Condition: Stable Prescriptions: No Action fluticasone propionate [Flonase Allergy Relief] 50 mcg/actuation spray,suspension 2 spray INTRANASAL DAILY PRN Rx Instructions: administer into each nostril sumatriptan succinate 50 mg tablet 100 mg PO PRN PRN (Reason: Migraine Headache) fluconazole [Diflucan] 150 mg tablet 150 mg PO Q3D Qty: 2 0RF levofloxacin 750 mg tablet 750 mg PO DAILY 7 Days Qty: 7 0RF norgestimate-ethinyl estradiol [Sprintec (28)] 0.25-35 mg-mcg tablet 1 tab PO DAILY Qty: 84 0RF albuterol sulfate 90 mcg/actuation HFA aerosol inhaler 1 inh INHALATION Q6H PRN (Reason: shortness of breath or wheezing) Qty: 6.7 0RF Zofran 4 mg tablet 4 mg PO Q6H PRN (Reason: nausea and vomiting) Qty: 10 0RF Discharge Orders: Discharge ED (Routine); Ordered 10/30/24 Ordered By: Suzi Gutierrez Referrals: Jim Matthews MD [Primary Care Provider] - Activity Restrictions/Additional Instructions: As we discussed, your ultrasound was negative for DVT. You may use anti-inflammatories as well as heat to the area over the next week or so. Please follow-up with primary care in 1 to 2 weeks if symptoms do not seem to be improving. Coding Level of Care Code ED Watch Repair Person for Moon Irby
[2024-10-30 17:42] VITALS: BP 119/79; PULSE 90; O2SAT 98
[2024-10-30 18:30] VITALS: BP 136/84; PULSE 88; O2SAT 99
== END 2024-10-30 18:31 | disposition home or self-care (01) ==
PROVIDERS: Emergency Provider Physician Assistant; PCP Family Medicine
DX: M79.604 Pain in right leg (principal); Z72.0 Tobacco use
CPT/HCPCS: 93971; 99284

== ENCOUNTER → 2025-09-02 13:16 | Outpatient (BNVA) | payer MEDICAID, SELFPAY | PROVIDERS: PCP Family Medicine; Visit Provider Nurse Practitioner Family | DX: D22.5 Melanocytic nevi of trunk (principal); L81.4 Other melanin hyperpigmentation | CPT/HCPCS: 99203 ==

== ENCOUNTER 2025-10-09 10:58 | Outpatient (CLI) | payer MEDICAID, SELFPAY ==
--- NOTE | 2025-10-09 11:09 | XR_ITS ---
WS: [id number] XR knee LT 3V* [id number] REASON FOR EXAM: L KNEE PAIN FINDINGS: No fracture or focal bone lesion. Joint spaces of the knee are intact and relatively well preserved. XR/XR knee LT 3V* [id number] IMPRESSION: No significant bone or joint abnormality.
--- NOTE | 2025-10-09 11:09 | XR_ITS ---
WS: [id number] XR knee RT 3V* [id number] REASON FOR EXAM: R KNEE PAIN FINDINGS: No fracture or focal bone lesion. Joint spaces of the knee are intact and relatively well preserved. XR/XR knee RT 3V* [id number] IMPRESSION: No significant bone or joint abnormality.
== END 2025-10-09 10:59 | disposition home or self-care (01) ==
LOC: RAD 10:58
PROVIDERS: PCP Family Medicine; Visit Provider Nurse Practitioner Family
DX: M25.562 Pain in left knee (principal); M25.561 Pain in right knee
CPT/HCPCS: 73562

== ENCOUNTER → 2025-10-29 07:53 | Outpatient (BNVA) | payer MEDICAID, SELFPAY | PROVIDERS: PCP Nurse Practitioner Family; Visit Provider Orthopaedic Surgery | DX: M25.561 Pain in right knee (principal); M25.562 Pain in left knee; G89.29 Other chronic pain | CPT/HCPCS: 99204 ==